=== PATIENT | female | born 1955 | race African-American/Black ===

== ENCOUNTER 2017-04-10 13:26 | Emergency (ER) | payer MEDICAID ==
[~2017-04-10] VITALS: Ht 185.4 cm; Wt 103.0 kg
[~2017-04-10 13:26] MED LIST: ASPI-1073 PO; HYDR-4005 PO; INS7030 SUBCUT; METF10002 PO; OMEP20CA4 PO; SOTA80TA PO; ZOLP5TAB2 PO
[2017-04-10] MEDS ORDERED: KETOROLAC 60MG/2ML VIAL IM ONE (18:30)
[2017-04-10 19:01] VITALS: BP 156/95
== END 2017-04-10 19:25 | disposition home or self-care (01) ==
LOC: ER 18:52
DX: G89.29 Other chronic pain (principal); M54.5 Low back pain; I48.91 Unspecified atrial fibrillation; E11.69 Type 2 diabetes mellitus with other specified complication; F17.211 Nicotine dependence, cigarettes, in remission; Z79.4 Long term (current) use of insulin; Z79.899 Other long term (current) drug therapy; Z88.0 Allergy status to penicillin; Z79.82 Long term (current) use of aspirin; Z79.84 Long term (current) use of oral hypoglycemic drugs; Z88.5 Allergy status to narcotic agent
CPT/HCPCS: 96372; 99283; J1885; Z7610

== ENCOUNTER 2019-05-21 19:40 | Emergency (ER) | payer MEDICARE, MEDICAID ==
[~2019-05-21] VITALS: Ht 185.4 cm; Wt 103.0 kg
[~2019-05-21 19:40] MED LIST changes: +METF-416 PO; -METF10002 PO
[2019-05-21 20:32] VITALS: BP 166/76
[2019-05-21] MEDS ORDERED: IBUPROFEN 800MG TABLET PO ONE (21:30)
[2019-05-21] MEDS ORDERED: ACETAMINOPHEN 500MG TABLET PO ONE (21:30)
== END 2019-05-21 23:27 | disposition home or self-care (01) ==
LOC: ER 21:34
DX: M25.511 Pain in right shoulder (principal); E78.00 Pure hypercholesterolemia, unspecified; E11.9 Type 2 diabetes mellitus without complications; I10 Essential (primary) hypertension; I48.91 Unspecified atrial fibrillation; Z88.5 Allergy status to narcotic agent; Z88.0 Allergy status to penicillin; Z79.4 Long term (current) use of insulin; Z79.01 Long term (current) use of anticoagulants; Z87.891 Personal history of nicotine dependence
CPT/HCPCS: 71046; 99283